=== PATIENT | female | born 1965 | race Two or more races ===

== ENCOUNTER 2018-11-20 22:30 | Emergency (ER) | payer BC, OTHER ==
[~2018-11-20] VITALS: Ht 165.1 cm; Wt 72.6 kg
[2018-11-21 00:55] VITALS: BP 138/62
== END 2018-11-21 01:18 | disposition home or self-care (01) ==
LOC: ER 22:37
DX: S39.012A Strain of muscle, fascia and tendon of lower back, initial encounter (principal); W01.0XXA Fall on same level from slipping, tripping and stumbling without subsequent striking against object, initial encounter; Y93.89 Activity, other specified; Y92.89 Other specified places as the place of occurrence of the external cause; Y99.8 Other external cause status; M51.37 Other intervertebral disc degeneration, lumbosacral region
CPT/HCPCS: 72131

== ENCOUNTER 2019-10-17 10:06 | Emergency (ER) | payer BC, OTHER ==
[~2019-10-17] VITALS: Ht 170.2 cm; Wt 72.6 kg
[2019-10-17] MEDS ORDERED: ACETAMINOPHEN 325 MG TAB PO ONE ×2 (10:31→11:00)
[2019-10-17 14:35] VITALS: BP 127/78
== END 2019-10-17 14:33 | disposition home or self-care (01) ==
LOC: ER 10:06
DX: U07.1 COVID-19 (principal); J02.9 Acute pharyngitis, unspecified; R50.9 Fever, unspecified
CPT/HCPCS: 71045; 87635